=== PATIENT | female | born 1980 | race Caucasian/White ===

== ENCOUNTER 2017-11-15 18:38 | Inpatient (IN) | payer OTHER ==
[2017-11-15 19:55] LABS: ADD MAN DIFF? NO
[2017-11-15 19:57] LABS: BASOPHILS % 0.3 % (0.0-2.0); EOSINOPHILS # 0.1 10^3/ul (0.0-0.5); EOSINOPHILS % 0.7 % (0.0-7.0); HEMATOCRIT 39.1 % (37.0-47.0); HEMOGLOBIN 12.9 g/dl (12.0-16.0); LYMPHOCYTES # 0.9 10^3/ul (0.8-2.9); MEAN CORPUSCULAR HEMOGLOBIN 28.7 pg (29.0-33.0); MEAN CORPUSCULAR VOLUME 87.1 fl (82.0-101.0); MEAN PLATELET VOLUME 11.2 fl (7.4-10.4); MONOCYTE # 0.5 10^3/ul (0.3-0.9); MONOCYTES % 5.8 % (0.0-11.0); NEUTROPHIL # 7.4 10^3/ul (1.6-7.5); NEUTROPHILS % 82.9 % (39.0-77.0); PLATELET COUNT 209 10^3/UL (140-415); RED BLOOD COUNT 4.49 10^6/ul (4.20-5.40); RED CELL DISTRIBUTION WIDTH 12.9 % (11.5-14.5)
[2017-11-15 19:57] LABS: WHITE BLOOD COUNT 8.9 10^3/ul (4.8-10.8)
[2017-11-15 20:15] LABS: ANION GAP 15 (8-16)
[2017-11-15 20:16] LABS: ALBUMIN 4.3 g/dl (3.3-4.9); ALKALINE PHOSPHATASE 301 IU/L (42-121); BILIRUBIN,INDIRECT 0.5 mg/dl (0-1.1); BILIRUBIN,TOTAL 0.5 mg/dl (0.2-1.3); BLOOD UREA NITROGEN 13 mg/dl (7-20); CALCIUM 9.5 mg/dl (8.4-10.2); CARBON DIOXIDE 25 mmol/L (21-31); CHLORIDE 104 mmol/L (97-110); GLUCOSE 124 mg/dl (70-220); INR 0.96; POTASSIUM 4.1 mmol/L (3.5-5.1); PROTIME 12.9 Sec (11.9-14.9); SODIUM 140 mmol/L (135-144); TOTAL PROTEIN 8.2 g/dl (6.1-8.1)
[2017-11-15 20:24] LABS: ALANINE AMINOTRANSFERASE 1166 IU/L (13-69); ASPARTATE AMINO TRANSFERASE 1418 IU/L (15-46)
[2017-11-15] MEDS ORDERED: ACETAMINOPHEN 325 MG TAB PO ×2 (20:30→21:00)
[2017-11-15] MEDS ORDERED: ONDANSETRON 4 MG INJ IV (20:30)
[2017-11-15] MEDS: ONDANSETRON 4 MG INJ IV (20:38)
[2017-11-15] MEDS: morphine 4 MG/ML VIAL IV (20:38)
[2017-11-15] MEDS: SOD CHLORIDE 0.9% 1,000 ML IV ×2 (20:38→23:25)
[2017-11-15 20:58] LABS: HAAIG REFLEX REFLEX FILED
[2017-11-15] MEDS ORDERED: NACL 0.9% 3 ML SYG IV (21:00)
[2017-11-15] MEDS ORDERED: DOCUSATE SODIUM 100 MG CAP PO (21:00)
[2017-11-15] MEDS ORDERED: HYDROmorphONE 0.5 MG/0.5 ML SYG IV (21:00)
[2017-11-15] MEDS ORDERED: BISACODYL (EC) 5 MG TAB PO (21:00)
[2017-11-15 21:08] LABS: ACETAMINOPHEN < 10.0 ug/ml (10.0-30.0)
[2017-11-15] MEDS: PIPER-TAZO 3.375 GM IV (PMX) 100 ML IVPB (21:13)
[2017-11-15 21:20] LABS: SALICYLATE < 1.0 mg/dl (5.0-30.0)
[2017-11-15 21:37] LABS: HEPATITIS B SURFACE ANTIGEN NEGATIVE (NEGATIVE)
[2017-11-15 21:55] LABS: HEPATITIS B CORE ANTIBODY NEGATIVE (NEGATIVE); HEPATITIS C VIRAL ANTIBODY NEGATIVE (NEGATIVE)
[2017-11-15 22:59] LABS: AMYLASE 3075 U/L (11-123)
[2017-11-15 23:12] LABS: LIPASE > 30000 U/L (23-300)
[2017-11-15] MEDS: morphine 2 MG INJ IV (23:26)
[2017-11-15] MEDS: SOD CHLORIDE 0.9% 100 ML (23:58)
[2017-11-15] MEDS: IOHEXOL 300MG/ML 150 ML BTL (23:58)
[2017-11-16] MEDS: PIPER-TAZO 3.375 GM IV (PMX) 100 ML IVPB ×4 (03:50→17:07)
[2017-11-16] MEDS: SOD CHLORIDE 0.9% 1,000 ML IV ×4 (04:45→17:07)
[2017-11-16 05:58] LABS: ADD MAN DIFF? NO
[2017-11-16 06:05] LABS: WHITE BLOOD COUNT 7.8 10^3/ul (4.8-10.8)
[2017-11-16 06:05] LABS: BASOPHILS % 0.3 % (0.0-2.0); EOSINOPHILS % 0.3 % (0.0-7.0); HEMATOCRIT 35.7 % (37.0-47.0); HEMOGLOBIN 11.8 g/dl (12.0-16.0); LYMPHOCYTES # 0.6 10^3/ul (0.8-2.9); LYMPHOCYTES % 7.8 % (15.0-51.0); MEAN CORPUSCULAR HEMOGLOBIN 28.6 pg (29.0-33.0); MEAN CORPUSCULAR HGB CONC 33.1 g/dl (32.0-37.0); MEAN CORPUSCULAR VOLUME 86.7 fl (82.0-101.0); MEAN PLATELET VOLUME 12.1 fl (7.4-10.4); MONOCYTE # 0.4 10^3/ul (0.3-0.9); MONOCYTES % 5.7 % (0.0-11.0); NEUTROPHIL # 6.7 10^3/ul (1.6-7.5); NEUTROPHILS % 85.6 % (39.0-77.0); PLATELET COUNT 179 10^3/UL (140-415); RED BLOOD COUNT 4.12 10^6/ul (4.20-5.40); RED CELL DISTRIBUTION WIDTH 13.2 % (11.5-14.5)
[2017-11-16 06:10] LABS: HEMOGLOBIN A1C 5.4 % (0-5.9)
[2017-11-16 06:22] LABS: INR 1.01; PROTIME 13.4 Sec (11.9-14.9)
[2017-11-16 06:23] LABS: PARTIAL THROMBOPLASTIN TIME 27.5 Sec (25.0-35.0)
[2017-11-16 06:44] LABS: ALBUMIN 3.7 g/dl (3.3-4.9); ALBUMIN/GLOBULIN RATIO 1.12; ALKALINE PHOSPHATASE 266 IU/L (42-121); ANION GAP 11 (8-16); BILIRUBIN,INDIRECT 0.8 mg/dl (0-1.1); BILIRUBIN,TOTAL 0.8 mg/dl (0.2-1.3); BLOOD UREA NITROGEN 8 mg/dl (7-20); CALCIUM 8.8 mg/dl (8.4-10.2); CARBON DIOXIDE 24 mmol/L (21-31); CHLORIDE 108 mmol/L (97-110); CHOL/HDL RATIO 2.2 RATIO; CHOLESTEROL 152 mg/dl (100-200); CREATININE 0.64 mg/dl (0.44-1.00); GLUCOSE 108 mg/dl (70-220); HDL CHOLESTEROL 68 mg/dl (34-82); LDL CHOLESTEROL,CALCULATED 78 mg/dl; MAGNESIUM 1.8 mg/dl (1.7-2.5); POTASSIUM 3.9 mmol/L (3.5-5.1); SODIUM 139 mmol/L (135-144); TRIGLYCERIDES 32 mg/dl (0-149)
[2017-11-16 07:04] LABS: THYROID STIMULATING HORMONE 0.526 MIU/L (0.465-4.680)
[2017-11-16 07:35] LABS: ALANINE AMINOTRANSFERASE 1053 IU/L (13-69); ASPARTATE AMINO TRANSFERASE 1037 IU/L (15-46)
[2017-11-16 07:47] LABS: LIPASE 22211 U/L (23-300)
[2017-11-16] MEDS: morphine 2 MG INJ IV (10:15)
[2017-11-16] MEDS: ONDANSETRON 4 MG INJ IV (16:09)
[2017-11-16] MEDS: INDOMETHACIN 50 MG SUPP PR (17:30)
[2017-11-16] MEDS ORDERED: MEPERIDINE 25 MG INJ IV (18:00)
[2017-11-16] MEDS ORDERED: HYDROmorphONE 1 MG/5 ML IV SYRINGE IV ×3 (18:00)
[2017-11-16] MEDS ORDERED: DIPHENHYDRAMINE 50 MG INJ IV (18:00)
[2017-11-16] MEDS ORDERED: ONDANSETRON 4 MG INJ IV (18:00)
[2017-11-17] MEDS ORDERED: METOCLOPRAMIDE 10 MG INJ (00:11)
[2017-11-17] MEDS ORDERED: NEOSTIGMINE 3 MG/3 ML SYRINGE (00:11)
[2017-11-17] MEDS ORDERED: PROPOFOL 20 ML (00:11)
[2017-11-17] MEDS ORDERED: MIDAZOLAM 1 MG/ML 2 ML INJ (00:11)
[2017-11-17] MEDS ORDERED: GLYCOPYRROLATE 0.4 MG INJ (00:11)
[2017-11-17] MEDS ORDERED: ONDANSETRON 4 MG INJ (00:11)
[2017-11-17] MEDS ORDERED: ROCURONIUM 50 MG INJ (00:11)
[2017-11-17] MEDS: PIPER-TAZO 3.375 GM IV (PMX) 100 ML IVPB ×5 (00:17→23:05)
[2017-11-17] MEDS: SOD CHLORIDE 0.9% 1,000 ML IV ×6 (00:31→23:05)
[2017-11-17 05:19] LABS: ADD MAN DIFF? NO
[2017-11-17 05:28] LABS: WHITE BLOOD COUNT 7.1 10^3/ul (4.8-10.8)
[2017-11-17 05:28] LABS: BASOPHILS % 0.4 % (0.0-2.0); EOSINOPHILS # 0.1 10^3/ul (0.0-0.5); EOSINOPHILS % 1.3 % (0.0-7.0); HEMOGLOBIN 10.5 g/dl (12.0-16.0); LYMPHOCYTES # 1.5 10^3/ul (0.8-2.9); MEAN CORPUSCULAR HEMOGLOBIN 28.7 pg (29.0-33.0); MEAN CORPUSCULAR HGB CONC 32.8 g/dl (32.0-37.0); MEAN CORPUSCULAR VOLUME 87.4 fl (82.0-101.0); MONOCYTE # 0.5 10^3/ul (0.3-0.9); MONOCYTES % 7.1 % (0.0-11.0); NEUTROPHILS % 69.9 % (39.0-77.0); PLATELET COUNT 163 10^3/UL (140-415); RED BLOOD COUNT 3.66 10^6/ul (4.20-5.40); RED CELL DISTRIBUTION WIDTH 13.2 % (11.5-14.5)
[2017-11-17 05:47] LABS: PHOSPHORUS 3.6 mg/dl (2.5-4.9)
[2017-11-17 05:47] LABS: MAGNESIUM 1.8 mg/dl (1.7-2.5)
[2017-11-17 05:58] LABS: ALANINE AMINOTRANSFERASE 636 IU/L (13-69); ALBUMIN 3.1 g/dl (3.3-4.9); ALBUMIN/GLOBULIN RATIO 1.03; ALKALINE PHOSPHATASE 199 IU/L (42-121); AMYLASE 698 U/L (11-123); ANION GAP 10 (8-16); ASPARTATE AMINO TRANSFERASE 320 IU/L (15-46); BILIRUBIN,INDIRECT 0.9 mg/dl (0-1.1); BILIRUBIN,TOTAL 0.9 mg/dl (0.2-1.3); BLOOD UREA NITROGEN 7 mg/dl (7-20); CALCIUM 8.2 mg/dl (8.4-10.2); CARBON DIOXIDE 24 mmol/L (21-31); CHLORIDE 109 mmol/L (97-110); CREATININE 0.74 mg/dl (0.44-1.00); GLUCOSE 70 mg/dl (70-220); POTASSIUM 3.9 mmol/L (3.5-5.1); SODIUM 139 mmol/L (135-144); TOTAL PROTEIN 6.1 g/dl (6.1-8.1)
[2017-11-17 06:06] LABS: LIPASE 2417 U/L (23-300)
[2017-11-17] MEDS: ENOXAPARIN 40 MG/0.4 ML SYG SC (10:47)
[2017-11-17] MEDS: ONDANSETRON 4 MG INJ IV (16:45)
[2017-11-18 05:05] LABS: ADD MAN DIFF? NO
[2017-11-18 05:07] LABS: WHITE BLOOD COUNT 7.6 10^3/ul (4.8-10.8)
[2017-11-18 05:07] LABS: BASOPHILS % 0.5 % (0.0-2.0); EOSINOPHILS # 0.2 10^3/ul (0.0-0.5); EOSINOPHILS % 2.8 % (0.0-7.0); HEMATOCRIT 32.1 % (37.0-47.0); HEMOGLOBIN 10.6 g/dl (12.0-16.0); LYMPHOCYTES # 1.1 10^3/ul (0.8-2.9); LYMPHOCYTES % 13.9 % (15.0-51.0); MEAN CORPUSCULAR HEMOGLOBIN 29.3 pg (29.0-33.0); MEAN CORPUSCULAR VOLUME 88.7 fl (82.0-101.0); MONOCYTE # 0.5 10^3/ul (0.3-0.9); MONOCYTES % 6.2 % (0.0-11.0); NEUTROPHIL # 5.8 10^3/ul (1.6-7.5); NEUTROPHILS % 76.3 % (39.0-77.0); PLATELET COUNT 156 10^3/UL (140-415); RED BLOOD COUNT 3.62 10^6/ul (4.20-5.40); RED CELL DISTRIBUTION WIDTH 13.1 % (11.5-14.5)
[2017-11-18] MEDS: PIPER-TAZO 3.375 GM IV (PMX) 100 ML IVPB ×3 (05:08→17:28)
[2017-11-18] MEDS: SOD CHLORIDE 0.9% 1,000 ML IV (05:09)
[2017-11-18 05:33] LABS: PHOSPHORUS 2.7 mg/dl (2.5-4.9)
[2017-11-18 05:33] LABS: MAGNESIUM 1.8 mg/dl (1.7-2.5)
[2017-11-18 05:39] LABS: ALBUMIN 3.3 g/dl (3.3-4.9); ALBUMIN/GLOBULIN RATIO 1.13; ALKALINE PHOSPHATASE 174 IU/L (42-121); AMYLASE 237 U/L (11-123); ANION GAP 12 (8-16); ASPARTATE AMINO TRANSFERASE 129 IU/L (15-46); BILIRUBIN,INDIRECT 0.8 mg/dl (0-1.1); BILIRUBIN,TOTAL 0.8 mg/dl (0.2-1.3); BLOOD UREA NITROGEN 8 mg/dl (7-20); CALCIUM 8.2 mg/dl (8.4-10.2); CARBON DIOXIDE 20 mmol/L (21-31); CHLORIDE 110 mmol/L (97-110); CREATININE 0.65 mg/dl (0.44-1.00); GLUCOSE 66 mg/dl (70-220); LIPASE 533 U/L (23-300); POTASSIUM 3.9 mmol/L (3.5-5.1); SODIUM 138 mmol/L (135-144); TOTAL PROTEIN 6.2 g/dl (6.1-8.1)
[2017-11-18] MEDS: DEXTROSE 5%-0.45% NACL 1,000 ML IV ×3 (06:44→20:20)
[2017-11-18 07:27] LABS: ALANINE AMINOTRANSFERASE 457 IU/L (13-69)
[2017-11-18] MEDS: ENOXAPARIN 40 MG/0.4 ML SYG SC (08:57)
[2017-11-19] MEDS: PIPER-TAZO 3.375 GM IV (PMX) 100 ML IVPB ×5 (00:10→23:51)
[2017-11-19] MEDS: DEXTROSE 5%-0.45% NACL 1,000 ML IV ×4 (03:00→23:00)
[2017-11-19 05:49] LABS: ADD MAN DIFF? NO
[2017-11-19 06:05] LABS: BASOPHILS % 0.7 % (0.0-2.0); EOSINOPHILS # 0.2 10^3/ul (0.0-0.5); EOSINOPHILS % 3.7 % (0.0-7.0); HEMOGLOBIN 11.7 g/dl (12.0-16.0); LYMPHOCYTES # 0.8 10^3/ul (0.8-2.9); MEAN CORPUSCULAR HEMOGLOBIN 29.5 pg (29.0-33.0); MEAN CORPUSCULAR HGB CONC 33.4 g/dl (32.0-37.0); MEAN CORPUSCULAR VOLUME 88.2 fl (82.0-101.0); MEAN PLATELET VOLUME 11.6 fl (7.4-10.4); MONOCYTE # 0.4 10^3/ul (0.3-0.9); MONOCYTES % 6.4 % (0.0-11.0); NEUTROPHIL # 4.5 10^3/ul (1.6-7.5); NEUTROPHILS % 74.9 % (39.0-77.0); PLATELET COUNT 180 10^3/UL (140-415); RED BLOOD COUNT 3.97 10^6/ul (4.20-5.40); RED CELL DISTRIBUTION WIDTH 12.9 % (11.5-14.5)
[2017-11-19 06:51] LABS: PHOSPHORUS 2.8 mg/dl (2.5-4.9)
[2017-11-19 07:03] LABS: ALBUMIN 3.8 g/dl (3.3-4.9); ALBUMIN/GLOBULIN RATIO 1.15; ALKALINE PHOSPHATASE 172 IU/L (42-121); AMYLASE 185 U/L (11-123); ANION GAP 10 (8-16); ASPARTATE AMINO TRANSFERASE 79 IU/L (15-46); BILIRUBIN,INDIRECT 0.6 mg/dl (0-1.1); BILIRUBIN,TOTAL 0.6 mg/dl (0.2-1.3); BLOOD UREA NITROGEN 4 mg/dl (7-20); CALCIUM 8.7 mg/dl (8.4-10.2); CARBON DIOXIDE 27 mmol/L (21-31); CHLORIDE 106 mmol/L (97-110); CREATININE 0.65 mg/dl (0.44-1.00); GLUCOSE 116 mg/dl (70-220); POTASSIUM 3.3 mmol/L (3.5-5.1); SODIUM 140 mmol/L (135-144); TOTAL PROTEIN 7.1 g/dl (6.1-8.1)
[2017-11-19 07:55] LABS: ALANINE AMINOTRANSFERASE 370 IU/L (13-69)
[2017-11-19] MEDS: ENOXAPARIN 40 MG/0.4 ML SYG SC (08:15)
[2017-11-19 08:37] LABS: LIPASE 763 U/L (23-300)
[2017-11-19] MEDS ORDERED: FENTAnyl 50 MCG/ML VIAL ×2 (11:50→12:35)
[2017-11-19] MEDS ORDERED: DEXAMETHASONE 4 MG/ML 1 ML INJ (11:50)
[2017-11-19] MEDS ORDERED: NEOSTIGMINE 3 MG/3 ML SYRINGE (11:50)
[2017-11-19] MEDS ORDERED: MIDAZOLAM 1 MG/ML 2 ML INJ (11:50)
[2017-11-19] MEDS ORDERED: GLYCOPYRROLATE 0.4 MG INJ (11:50)
[2017-11-19] MEDS ORDERED: PROPOFOL 20 ML (11:50)
[2017-11-19] MEDS ORDERED: ROCURONIUM 50 MG INJ (11:50)
[2017-11-19] MEDS ORDERED: CEFAZOLIN 1 GM INJ (11:50)
[2017-11-19] MEDS ORDERED: ONDANSETRON 4 MG INJ (11:50)
[2017-11-19] MEDS ORDERED: ROPIVACAINE 0.5 % 30 ML VIAL (11:51)
[2017-11-19] MEDS ORDERED: MEPERIDINE 25 MG INJ IV (13:00)
[2017-11-19] MEDS ORDERED: DIPHENHYDRAMINE 50 MG INJ IV (13:00)
[2017-11-19] MEDS ORDERED: hydrALAzine 20 MG INJ IV (13:00)
[2017-11-19] MEDS ORDERED: OXYCODONE/ACETAMINOPHEN (5/325) TAB PO ×2 (13:00)
[2017-11-19] MEDS ORDERED: TRIMETHOBENZAMIDE 100 MG/ML VIAL IM (13:00)
[2017-11-19] MEDS ORDERED: ALBUTEROL 0.083% (NEB) 2.5 MG/3 ML AMP HHN (13:00)
[2017-11-19] MEDS ORDERED: EPHEDrine SULFATE 50 MG/5 ML SYG IV (13:00)
[2017-11-19] MEDS ORDERED: HYDROmorphONE 1 MG/5 ML IV SYRINGE IV (13:00)
[2017-11-19] MEDS ORDERED: MIDAZOLAM 1 MG/ML 2 ML INJ IV (13:00)
[2017-11-19] MEDS ORDERED: IPRATROPIUM (NEB) 0.5 MG/2.5 ML AMP HHN (13:00)
[2017-11-19] MEDS ORDERED: FENTAnyl 50 MCG/ML VIAL IV ×3 (13:00)
[2017-11-19] MEDS ORDERED: LABETALOL HCL 20MG INJ IV (13:00)
[2017-11-19] MEDS ORDERED: SUGAMMADEX SODIUM 200 MG/2 ML VIAL IV (13:25)
[2017-11-19] MEDS: HYDROmorphONE 1 MG/5 ML IV SYRINGE IV ×2 (14:09→14:20)
[2017-11-19] MEDS: ONDANSETRON 4 MG INJ IV (14:09)
[2017-11-20] MEDS: POTASSIUM CHLORIDE (SR) 20 MEQ TAB PO ×2 (00:17→17:05)
[2017-11-20] MEDS: DEXTROSE 5%-0.45% NACL 1,000 ML IV ×2 (02:33→10:44)
[2017-11-20] MEDS: PIPER-TAZO 3.375 GM IV (PMX) 100 ML IVPB ×2 (06:01→12:50)
[2017-11-20] MEDS: ENOXAPARIN 40 MG/0.4 ML SYG SC (08:43)
[2017-11-20 11:38] LABS: ADD MAN DIFF? NO
[2017-11-20 11:40] LABS: WHITE BLOOD COUNT 7.4 10^3/ul (4.8-10.8)
[2017-11-20 11:40] LABS: BASOPHILS % 0.1 % (0.0-2.0); EOSINOPHILS % 0.3 % (0.0-7.0); HEMATOCRIT 33.6 % (37.0-47.0); HEMOGLOBIN 11.1 g/dl (12.0-16.0); LYMPHOCYTES # 0.9 10^3/ul (0.8-2.9); LYMPHOCYTES % 11.8 % (15.0-51.0); MEAN CORPUSCULAR VOLUME 87.7 fl (82.0-101.0); MEAN PLATELET VOLUME 11.3 fl (7.4-10.4); MONOCYTE # 0.6 10^3/ul (0.3-0.9); MONOCYTES % 7.5 % (0.0-11.0); NEUTROPHIL # 5.9 10^3/ul (1.6-7.5); NEUTROPHILS % 79.9 % (39.0-77.0); PLATELET COUNT 196 10^3/UL (140-415); RED BLOOD COUNT 3.83 10^6/ul (4.20-5.40); RED CELL DISTRIBUTION WIDTH 12.9 % (11.5-14.5)
[2017-11-20 11:57] LABS: LIPASE 734 U/L (23-300)
[2017-11-20 12:06] LABS: ALANINE AMINOTRANSFERASE 272 IU/L (13-69); ALBUMIN 3.2 g/dl (3.3-4.9); ALBUMIN/GLOBULIN RATIO 1.06; ALKALINE PHOSPHATASE 168 IU/L (42-121); ANION GAP 12 (8-16); ASPARTATE AMINO TRANSFERASE 73 IU/L (15-46); BILIRUBIN,INDIRECT 0.3 mg/dl (0-1.1); BILIRUBIN,TOTAL 0.3 mg/dl (0.2-1.3); BLOOD UREA NITROGEN 3 mg/dl (7-20); CALCIUM 9.3 mg/dl (8.4-10.2); CARBON DIOXIDE 26 mmol/L (21-31); CHLORIDE 106 mmol/L (97-110); CREATININE 0.66 mg/dl (0.44-1.00); GLUCOSE 137 mg/dl (70-220); POTASSIUM 3.4 mmol/L (3.5-5.1); SODIUM 141 mmol/L (135-144); TOTAL PROTEIN 6.2 g/dl (6.1-8.1)
== END 2017-11-20 17:22 | disposition home or self-care (01) | DRG 417 ==
LOC: E/R 18:38 → PP2 22:07
PROC: 0F798DZ Dilation of Common Bile Duct with Intraluminal Device, Via Natural or Artificial Opening Endoscopic (ICD-10-PCS; 2017-11-16 17:00)
PROC: 0FCC8ZZ Extirpation of Matter from Ampulla of Vater, Via Natural or Artificial Opening Endoscopic (ICD-10-PCS; 2017-11-16 17:00)
PROC: 0FC98ZZ Extirpation of Matter from Common Bile Duct, Via Natural or Artificial Opening Endoscopic (ICD-10-PCS; 2017-11-16 17:00)
PROC: 0FT44ZZ Resection of Gallbladder, Percutaneous Endoscopic Approach (ICD-10-PCS; principal; 2017-11-16 17:46)
PROC: BF10YZZ Fluoroscopy of Bile Ducts using Other Contrast (ICD-10-PCS; 2017-11-16 17:46)
DX: K85.10 Biliary acute pancreatitis without necrosis or infection (principal); K80.67 Calculus of gallbladder and bile duct with acute and chronic cholecystitis with obstruction; R74.0 Nonspecific elevation of levels of transaminase and lactic acid dehydrogenase [LDH]
CPT/HCPCS: 71045; 74177; 74181; 74330; 76705; 80053; 80061; 80307; 82150; 83036; 83690; 83735; 84100; 84443; 84703; 85025; 85610; 85730; 86704; 86709; 86803; 86850; 86900; 86901; 87340; 88304; 93005; 99285-25